=== PATIENT | female | born 1965 | race Caucasian/White ===

== ENCOUNTER → 2020-05-31 10:36 | Outpatient (CLI) | payer BC, SELFPAY ==
--- NOTE | ~2020-05-31 | MM_ITS ---
EXAMINATION: MM screening [facility] BI w blank HISTORY: Screening mammogram TECHNIQUE: Craniocaudal and mediolateral oblique 3-D tomosynthesis images were obtained and synthetic 2-D images were generated. CAD analysis was submitted and interpreted. COMPARISON: 05/25/2015 left diagnostic digital mammogram and complete left breast ultrasound 05/04/2015 bilateral digital screening mammogram report for description. 2. BREAST PARENCHYMAL COMPOSITION: There are scattered areas of fibroglandular density. FINDINGS: There is no evidence of suspicious mass, calcification, or architectural distortion to sugg est malignancy in either breast. There has been no suspicious interval change. IMPRESSION: 1. No mammographic evidence of malignancy. 2. Recommend routine screening mammography in one year. BI-RADS Category 1: Negative Reviewed, dictated and finalized at location A.
== END ==
PROVIDERS: PCP Family Medicine; Visit Provider Family Medicine
DX: Z12.31 Encounter for screening mammogram for malignant neoplasm of breast (principal)
CPT/HCPCS: 77063; 77067

== ENCOUNTER → 2020-10-28 15:58 | Outpatient (CLI) | payer BC, SELFPAY ==
--- NOTE | ~2020-10-28 | XR_ITS ---
XR hip RT min 2V DATE: 10/28/2020 16:22 INDICATION: Right hip pain TECHNIQUE: AP and lateral views COMPARISON: None FINDINGS: There is osteoarthritic spurring of the right hip. No fracture or dislocation, avascular n ecrosis or bone destruction of the right hip. IMPRESSION: Right hip osteoarthritis Reviewed, dictated and finalized at location A. IMPRESSION: Right hip osteoarthritis
== END ==
PROVIDERS: PCP Physician Assistant; Visit Provider Physician Assistant
DX: M16.11 Unilateral primary osteoarthritis, right hip (principal)
CPT/HCPCS: 73502

== ENCOUNTER → 2021-06-21 16:16 | Outpatient (CLI) | payer BC, SELFPAY ==
--- NOTE | ~2021-06-21 | MM_ITS ---
EXAMINATION: MM screening [facility] BI w blank HISTORY: Screening mammogram TECHNIQUE: Craniocaudal and mediolateral oblique 3-D tomosynthesis images were obtained and synthetic 2-D images were generated. CAD analysis was submitted and interpreted. COMPARISON: 05/31/2020 bilateral screening mammogram 05/25/2015 diagnostic left mammogram and complete left breast ultrasound 05/04/2015 bilateral screening mammogram BREAST PARENCHYMAL COMPOSITION: There are scattered areas of fibroglandular density. FINDINGS: There is no evidence of suspicious mass, calcification, or architectural distortion to sugg est malignancy in either breast. There has been no suspicious interval change. IMPRESSION: 1. No mammographic evidence of malignancy. 2. Recommend routine screening mammography in one year. BI-RADS Category 1: Negative Reviewed, dictated and finalized at location A. ER PREPARER
== END ==
PROVIDERS: PCP Family Medicine; Visit Provider Family Medicine
DX: Z12.31 Encounter for screening mammogram for malignant neoplasm of breast (principal)
CPT/HCPCS: 77063; 77067

== ENCOUNTER 2021-06-29 13:53 | Emergency (ER) | payer BC, SELFPAY ==
--- NOTE | ~2021-06-29 | CT_ITS ---
EXAMINATION: CTA BRAIN/CAROTID DATE: 06/29/2021 17:45 INDICATION: Left arm and leg numbness. TECHNIQUE: Computed tomographic angiography (CTA) of the head and neck was performed with 100 mL Omni paque-350 intravenous contrast. Multiplanar reconstructions and maximum intensity projection 3D-recon structions of the carotid arteries and of the intracranial arteries were created by the technologist on a separate workstation. Precontrast CT of the head was also obtained. Automated exposure control and iterative reconstruction technique were employed.The dose-length product was 1606.34 mGy-cm. COMPARISON: None. FINDINGS: Carotid arteries: Normal caliber of the aortic arch and great vessels arising from the arch with no evident atheroscler otic disease. There is no evident plaque with 0% stenosis of the right and left carotid bulbs relativ e to normal distal artery lumen diameter (NASCET criteria). No evident plaque along the codominant ve rtebral arteries. Likely benign 5 mm rim enhancing right thyroid nodule. Cervical soft tissues are ot herwise unremarkable. Visualized upper lungs are clear. Severe lower cervical spondylosis. Head: No acute intracranial hemorrhage, acute infarction or abnormal extra axial fluid collection. Ventricl es are normal and symmetric. No mass/mass effect. No abnormally enhancing brain lesions. The orbits, paranasal sinuses and mastoid air cells are normal. Intracranial arteries There is no hemodynamically significant stenosis in the vertebral, basilar and internal carotid arter ies. Vertebral arteries are codominant. There are no aneurysms, significant stenosis, thrombosis or d issection identified. Both A1 and P1 segments are patent. There is also a patent anterior communicat ing artery. Cerebral arterial arborization appears symmetric. IMPRESSION: 1. 0% stenosis of the left and right carotid bulbs relative to normal distal artery lumen diameter (N ASCET criteria). 2. Normal brain. No acute intracranial process.. 3. Normal cerebral CT angiogram with no significant stenosis, aneurysm or dissection. Reviewed, dictated and finalized at location A. AMON GRINDER IMPRESSION: 1. 0% stenosis of the left and right carotid bulbs relative to normal distal ar aiden lumen diameter (NASCET criteria). 2. Normal brain. No acute intracranial process.. 3. Normal cerebral CT angiogram with no significant stenosis, aneurysm or disse ction.
--- NOTE | ~2021-06-29 | XR_ITS ---
EXAMINATION: XR lumbar spine 2-3V DATE: 06/29/2021 16:52 INDICATION: Numbness radiating down the left leg TECHNIQUE: Anteroposterior and lateral views of the lumbar spine, and cone-down lateral view of the l umbosacral junction were obtained. COMPARISON: None. FINDINGS: 9 degrees dextrocurvature between T12 and L3 and 6 sagittal alignment is normal. Vertebral body heigh ts are normal. Moderate disc height loss at L4-L5, mild disc height loss at the remaining levels from T9-T10 through L5-S1 relatively sparing T12-L1. Moderate facet osteoarthritis in the lower lumbar sp ine. Sacrum and bilateral sacralized joints are unremarkable. Surgical clips in the pelvis and lower abdomen. Normal bowel gas pattern. Lung bases are clear with no pleural effusion. IMPRESSION: 1. Mild S-shaped curvature and mild to moderate spondylosis in the lumbar and lower thoracic spine. Reviewed, dictated and finalized at location A. RVISOR MONEY ROOM IMPRESSION: 1. Mild S-shaped curvature and mild to moderate spondylosis in the lumbar and l ower thoracic spine.
--- NOTE | ~2021-06-29 | XR_ITS ---
EXAMINATION: XR chest 1V portable DATE: 06/29/2021 15:59 INDICATION: Left arm numbness. TECHNIQUE: A single frontal view of the chest was obtained. COMPARISON: None. FINDINGS: There is mild scarring at the lung apices. No pleural effusion or pneumothorax. The heart s ize is normal. There is a right internal jugular port with tip in superior vena cava. IMPRESSION: 1. Mild scarring at the lung apices. Reviewed, dictated and finalized at location A. ECLEANER
[2021-06-29 13:55] VITALS: BP 116/76; PULSE 92; RESP 16; TEMP 36.3; O2SAT 98
--- NOTE | 2021-06-29 15:41 | ECG_ITS ---
Measurements Intervals [place] Rate: 71 P: 63 CA: 161 QRS: 17 QRSD: 116 T: 49 QT: 400 QTc: 435 Interpretive Statements SINUS RHYTHM WITH SINUS ARRHYTHMIA POSSIBLE LEFT ATRIAL ENLARGEMENT INCOMPLETE RIGHT BUNDLE BRANCH BLOCK BASELINE ARTIFACT- I, III, AVL BORDERLINE ECG Electronically Signed On 06-29-2021 16:14:23 INDUSTRIAL RADIOGRAPHER by Brian Cobb D.O.
[2021-06-29 15:46] VITALS: BP 149/94; PULSE 79; RESP 20; O2SAT 100
[2021-06-29 16:24] VITALS: BP 126/80; PULSE 80; RESP 20; O2SAT 100
--- NOTE | 2021-06-29 16:34 | ED.NEUROSD ---
HPI - Neuro Symptoms/Deficit General Chief Complaint: Neuro Symptoms/Deficit Stated Complaint: L LEG/ARM NUMBNESS/TINGLING XFEW DAYS Time Seen by Provider: 06/29/21 15:41 Source: patient and RN notes reviewed Mode of arrival: ambulatory Limitations: no limitations History of Present Illness HPI Narrative: This is a 56 year old female who presents for evaluation of left arm and left leg numbness and tingling. She has been having numbness and tingling down her left leg for 3 weeks. This has been constant and she also reports left leg pain with tingling that is worse with movement. She developed left arm numbness and tingling 2-3 days ago. She denies chest pain, shortness of breath, neck pain, headache, dizziness, abdominal pain, arm weakness or leg weakness. She has noticed left lower back pain today. She was referred to ER for evaluation of her symptoms. Related Data Allergies Allergy/AdvReac Type Severity Reaction Status Date / Time No Known Allergies Allergy Verified 06/29/21 17:15 Review of Systems Review of Systems: All systems reviewed & are unremarkable except as noted in HPI and below PMFSH Past Medical History Medical History (Updated 06/29/21 @ 18:38 by Maddison Drake MD) Ovarian cancer Social History Social History (Updated 06/29/21 @ 16:41 by Maddison Drake MD) Smoking status: Never smoker Exam Const: General: no acute distress and alert Orientation/consciousness: patient oriented x3 HENMT: Head: normocephalic and atraumatic Face and sinus: normal facial exam, sinuses nontender and face symmetric Mouth: Yes Normal oral and palatal mucosa present, Yes lip normal, Yes oropharynx normal and Yes moist mucous membranes Eyes: Pupils: Equal, round and reactive pupils present EOM: EOMs intact bilaterally Neck: Neck: normal visual inspection Chest: Chest palpation & inspection: normal inspection of the chest Resp: Effort & Inspection: normal respiratory effort and no retractions Auscultation: clear to auscultation bilaterally Cardio: Rate: regular rate Rhythm: regular rhythm Heart sounds: no murmurs GI: GI Palp: Yes Soft to palpation, No Tenderness to palpation present (GI) and No Guarding due to palpation present (GI) Auscultation: normal bowel sounds Back/Spine/Pelvis: Back: no CVA tenderness Skin: General skin exam: normal color Rashes: no rashes Neuro: General: patient oriented x3, moves all extremities, no meningeal signs, no focal motor deficits and CN's II-XI intact bilaterally Cranial nerves: Yes CN's II-XII intact bilaterally and Yes Nystagmus not present Cognition (Neuro): normal cognition Speech: normal speech Motor exam (neuro): 5/5 motor strength present throughout, Pronator motor function not present, No tremor noted and No asterixis Sensory Exam: normal sensation and Normal double simultaneous stimulation for sensation Coordination: [id number] test normal and [id number] test normal Extrem: General: normal to inspection Psych: Mental Status: mental status grossly normal Affect: normal affect Course Reevaluation(s) Reevaluation #1: I discussed with patient that labs and CT are unremarkable. I did not find any focal deficits on her examinations. This may be spine etiology instead of stroke. I recommended for patient to be admitted to hospital for MRI and neurology evaluation. She does not want to stay. She request that I speak with PCP about discharge. Date: 06/29/21 Time: 18:00 Consultations Consultation #1: I spoke to Dr. Tijerina about patient. He states we can order MRI of spine . Further assessment can be done tomorrow. Date: 06/29/21 Time: 18:29 Consultation #2: I spoke with Dr. Zimmer about patient. I reviewed course and case. He states patient can be discharged home and seen in clinic. They will continue her evaluation for her paresthesias . Date: 06/29/21 Time: 18:32 Vital Signs Vital signs: Vital Signs Temperature 97.3 F L
[2021-06-29 16:37] LABS: Basophils Absolute Auto 0.1 K/mm3 (0.0-0.1); Eosinophils Absolute Auto 0.1 K/mm3 (0-0.3); Eosinophils Percent Auto 1.1 % (0-4.4); Hematocrit 36.6 % (37.0-47.0); Hemoglobin 12.2 g/dL (12.0-15.0); Immature Granulocyte Absolute 0.02 K/mm3 (0.00-0.031); Immature Granulocyte Percent A 0.3 % (0-0.5); Lymphocytes Absolute Auto 1.89 K/mm3 (0.9-3.2); Lymphocytes Percent Auto 30.1 % (18.3-44.2); Mean Corpuscular HGB Conc 33.3 g/dl (32-36); Mean Corpuscular Hemoglobin 29.6 pg (26-34); Mean Corpuscular Volume 88.8 fl (80-100); Mean Platelet Volume 9.3 fl (7.4-10.4); Monocytes Absolute Auto 0.5 K/mm3 (0.1-0.6); Monocytes Percent Auto 7.5 % (2.6-8.5); Neutrophils Absolute Auto 3.8 K/mm3 (1.3-6.7); Platelet Count Result 177 k/mm3 (150-375); Red Blood Count 4.12 M/mm3 (4.2-5.4); Red Cell Distribution Width 13.1 % (11.5-14.5); White Blood Count 6.3 K/mm3 (4.5-10.0)
[2021-06-29 16:47] LABS: Prothrombin Time 12.8 Seconds (11.1-14.7)
[2021-06-29 16:48] LABS: Alanine Aminotransferase 20 U/L (4-35); Albumin Level 4.6 g/dL (3.5-5.1); Alkaline Phosphatase 52 U/L (38-126); Anion Gap 8 mmol/L (8-16); Aspartate Amino Transferase 28 U/L (14-36); Bilirubin,Total 0.3 mg/dL (0.2-1.3); Blood Urea Nitrogen 15 mg/dL (7-17); Calcium 9.4 mg/dL (8.4-10.2); Carbon Dioxide 27 mmol/L (22-30); Chloride 102 mmol/L (98-107); Estimated CRCL calculation 73 ml/min; Estimated Glomerular Filt Rate > 60; Glucose 85 mg/dL (65-110); Partial Thromboplastin Time 28.3 SECONDS (22.3-36.8); Potassium 3.7 mmol/L (3.4-5.0); Sodium 137 mmol/L (137-145)
[2021-06-29 17:33] LABS: Troponin I < 0.012 ng/mL (0.000-0.034)
[2021-06-29 18:11] LABS: Add Urine Microscopic? YES; Appearance Urine Clear (Clear); Bilirubin Urine Negative (Negative); Blood Urine 1+ (Negative); Color Urine Straw (Yellow); Glucose Urine UA Negative (Negative); Ketones Urine Negative (Negative); Leukocyte Esterase Ur Negative LEU/UL (Negative); Mucus Urine Rare /lpf; Nitrate Urine Negative (Negative); Protein Urine Negative (Negative); Squamous Epithelial Cell Urine Rare /hpf (Few); Urobilinogen Urine Negative mg/dL (<2.0); WBC Urine 0-3 /hpf
[2021-06-29 18:22] LABS: Specific Grav Ur 1.041 (1.001-1.035)
[2021-06-29 18:39] VITALS: BP 136/81; PULSE 70; RESP 15; O2SAT 100
[2021-06-29 18:48] VITALS: BP 124/76; PULSE 73; RESP 15; O2SAT 99
--- NOTE | 2021-06-29 19:19 | PC.NURSE ---
Heparin lock used to discontinue port access.
== END 2021-06-29 19:15 | disposition home or self-care (01) ==
PROVIDERS: Emergency Provider General Practice; PCP Family Medicine
DX: R20.2 Paresthesia of skin (principal); Z85.43 Personal history of malignant neoplasm of ovary; I45.10 Unspecified right bundle-branch block; R94.31 Abnormal electrocardiogram [ECG] [EKG]; M47.815 Spondylosis without myelopathy or radiculopathy, thoracolumbar region
CPT/HCPCS: 36415; 70496; 70498; 71045; 72100; 80053; 81001; 84484; 85025; 85610; 85730; 93005; 99284; J1642; Q9967

== ENCOUNTER → 2021-06-30 11:38 | Outpatient (CLI) | payer BC, SELFPAY ==
--- NOTE | ~2021-06-30 | XR_ITS ---
EXAMINATION: XR cervical spine min 6V DATE: 06/30/2021 12:29 INDICATION: Paresthesia of skin. TECHNIQUE: 6 views of cervical spine standing were obtained. COMPARISON: CTA neck 06/29/2021 FINDINGS: There is kyphosis of cervical spine. There is 2 mm retrolisthesis of C5 on C6. Vertebral maicol dy heights are normal. There is mildly decreased disc height at C4-C5 and severely decreased disc hei ght at C5-C6 and C6-C7. There is multilevel uncovertebral joint osteoarthritis, severe on the left at C5-C6 and C6-C7. There is multilevel facet joint osteoarthritis, severe on the right at C4-C5. There is mild central canal stenosis at C4-C5, C5-C6, and C6-C7. No prevertebral soft tissue swelling. Par tially visualized is a right internal jugular port. There is mild scarring at the lung apices. IMPRESSION: 1. Severe cervical spondylosis. Reviewed, dictated and finalized at location A. 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
== END ==
PROVIDERS: PCP Family Medicine; Visit Provider Family Medicine
DX: R20.2 Paresthesia of skin (principal); M47.892 Other spondylosis, cervical region
CPT/HCPCS: 72052

== ENCOUNTER → 2021-07-29 09:20 | Outpatient (CLI) | payer BC, SELFPAY ==
--- NOTE | ~2021-07-29 | MR_ITS ---
EXAMINATION: MR cervical spine wo con DATE: 07/29/2021 10:46 INDICATION: Severe spondylosis of cervical spine. TECHNIQUE: Magnetic resonance imaging (MRI) of the cervical spine was performed without intravenous c ontrast. Sequences included sagittal T2-weighted FSE, sagittal STIR FSE, sagittal T1-weighted FSE, ax ial MERGE, and axial T2-weighted FSE. COMPARISON: Cervical spine radiographs 06/30/2021 FINDINGS: There is 3 degrees dextrocurvature of cervicothoracic spine. There is 2 mm retrolisthesis o f C5 on C6 and C6 on C7. Vertebral body heights are normal. There is mildly decreased disc height at C4-C5 and severely decreased disc height at C5-C6 and C6-C7 with endplate remodeling. The spinal cord signal intensity is normal. There is a 6 mm nodule in right thyroid lobe, likely not clinically sign ificant. The following disc levels are specifically discussed: C2-C3: The disc does not extend beyond the endplate margin. There is no uncovertebral joint osteoarth ritis. There is severe right and mild left facet joint osteoarthritis. There is mild right neural for aminal stenosis. There is no central canal stenosis. C3-C4: The disc does not extend beyond the endplate margin. There is mild right and moderate left unc overtebral joint osteoarthritis. There is moderate bilateral facet joint osteoarthritis. There is mil d left neural foraminal stenosis. There is no central canal stenosis. C4-C5: The disc does not extend beyond the endplate margin. There is mild bilateral uncovertebral berna nt osteoarthritis. There is severe bilateral facet joint osteoarthritis. There is mild bilateral neur al foraminal stenosis. There is no central canal stenosis. C5-C6: The disc is bulging. There is moderate right and severe left uncovertebral joint osteoarthriti s. There is mild right and severe left facet joint osteoarthritis. There is severe left neural forami nal stenosis. There is mild central canal stenosis with ventral indentation of the spinal cord. C6-C7: The disc is bulging. There is moderate right and severe left uncovertebral joint osteoarthriti s. There is no facet joint osteoarthritis. There is mild right and severe left neural foraminal steno sis. There is mild central canal stenosis. C7-T1: The disc does not extend beyond the endplate margin. There is mild left uncovertebral joint os teoarthritis. There is severe bilateral facet joint osteoarthritis. There is mild left neural foramin al stenosis. There is no central canal stenosis. IMPRESSION: 1. Severe cervical spondylosis. Reviewed, dictated and finalized at location A. THCARE ECONOMICS MANAGER
== END ==
PROVIDERS: PCP Family Medicine; Visit Provider Family Medicine
DX: M47.813 Spondylosis without myelopathy or radiculopathy, cervicothoracic region (principal); M48.03 Spinal stenosis, cervicothoracic region
CPT/HCPCS: 72141

== ENCOUNTER 2022-07-14 08:57 | Outpatient (CLI) | payer BC, SELFPAY ==
--- NOTE | ~2022-07-14 | MM_ITS ---
EXAMINATION: MM screening [facility] BI w blank HISTORY: Screening mammogram TECHNIQUE: Craniocaudal and mediolateral oblique 3-D tomosynthesis images were obtained and synthetic 2-D images were generated. CAD analysis was submitted and interpreted. COMPARISON: 06/21/2021, 05/31/2020, 05/25/2015, 05/04/2015 BREAST PARENCHYMAL COMPOSITION: There are scattered areas of fibroglandular density. FINDINGS: RIGHT BREAST: There is a possible mass in the posterior third of the outer breast best appreciated 6 cm from the nipple on the craniocaudal view. LEFT BREAST: No suspicious mass, calcification, or architectural distortion are identified to suggest malignancy. There has been no suspicious interval change. IMPRESSION: 1. Possible right breast mass. 2. Additional mammographic views and possible breast ultrasound are recommended. BI-RADS Category 0: Incomplete: Needs additional imaging evaluation. Reviewed, dictated and finalized at location A. ULATION MAN IMPRESSION: 1. Possible right breast mass. 2. Additional mammographic views and possible breast ultrasound are recommended . BI-RADS Category 0: Incomplete: Needs additional imaging evaluation.
== END 2022-07-14 08:58 | disposition home or self-care (01) ==
PROVIDERS: PCP Family Medicine; Visit Provider Family Medicine
DX: Z12.31 Encounter for screening mammogram for malignant neoplasm of breast (principal); R92.8 Other abnormal and inconclusive findings on diagnostic imaging of breast
CPT/HCPCS: 77063; 77067

== ENCOUNTER 2022-07-31 12:33 | Outpatient (CLI) | payer BC, SELFPAY ==
--- NOTE | ~2022-07-31 | MMUS_ITS ---
EXAMINATION: MM diagnostic alecia RT w blank, US breast RT limited HISTORY: Right breast mass TECHNIQUE: Additional 3-D tomosynthesis images of the right breast were performed and synthetic 2-D i mages were generated. CAD analysis was submitted and interpreted. High resolution Limited right breas t ultrasound was performed. COMPARISON: Comparison to multiple prior studies sequentially, with oldest reviewed study dated 05/04. BREAST PARENCHYMAL COMPOSITION: The breasts are heterogeneously dense, which may obscure small masses FINDINGS: MAMMOGRAPHIC FINDINGS: There is a small mass in the upper outer quadrant of the right breast measuring 3 mm. The mass is low density and circumscribed, likely benign. No suspicious calcifications or architectural distortion. ULTRASOUND: Limited right breast ultrasound: At 11:00 near the nipple there is a small cluster of cysts measuring up to 7 mm. This does not definitely correspond to the mammographic finding. IMPRESSION: 1. Probable benign findings of the right breast. 2. Recommend 6 month follow-up diagnostic right mammogram and ultrasound BI-RADS category 3, probably benign findings. Reviewed, dictated and finalized at location A. ONNEL INTERVIEWER IMPRESSION: 1. Probable benign findings of the right breast. 2. Recommend 6 month follow-up diagnostic right mammogram and ultrasound BI-RADS category 3, probably benign findings.
== END 2022-07-31 12:34 | disposition home or self-care (01) ==
PROVIDERS: PCP Family Medicine; Visit Provider Family Medicine
DX: R92.8 Other abnormal and inconclusive findings on diagnostic imaging of breast (principal)
CPT/HCPCS: 76642; 77061; 77065; G0279